=== PATIENT | female | born 1955 | race Caucasian/White ===

== ENCOUNTER 2022-07-23 08:21 | Outpatient (CLI) | payer MEDICARE, BC, SELFPAY ==
[2022-07-23 12:44] LABS: Albumin* 4.3 g/dL (3.3-5.0); Chloride* 107 mmol/L (96-114)
[2022-07-23 12:45] LABS: Potassium* 4.5 mmol/L (3.6-5.1); Sodium* 140 mmol/L (135-149)
[2022-07-23 12:47] LABS: Alkaline Phosphatase* 57 U/L (40-150); Aspartate Amino Transferase* 34 U/L (12-35); Bilirubin Total* 0.6 mg/dL (0.1-1.5); Blood Urea Nitrogen* 23 mg/dL (7-30); Carbon Dioxide* 25 mmol/L (20-32); Cholesterol* 167 mg/dL (90-199); Creatinine* 0.8 mg/dL (0.5-1.5); Estimated Glomerular Filt Rate 81 ml/min; Glucose* 99 mg/dL (60-115); Total Protein* 7.3 g/dL (6.0-8.3)
[2022-07-23 12:48] LABS: Alanine Aminotransferase* 33 U/L (4-35); Calcium* 9.6 mg/dL (8.4-10.6); HDL Cholesterol* 57 mg/dL (>=50); LDL Cholesterol Calculated 75 mg/dL (<100); Triglycerides* 174 mg/dL (40-149)
[2022-07-23 13:25] LABS: Vitamin D 25 Hydroxy* 38 ng/mL (30-80)
== END 2022-07-23 08:22 | disposition home or self-care (01) ==
PROVIDERS: PCP Family Medicine; Visit Provider Family Medicine
DX: E78.5 Hyperlipidemia, unspecified (principal); M17.12 Unilateral primary osteoarthritis, left knee; E66.01 Morbid (severe) obesity due to excess calories; I10 Essential (primary) hypertension; R53.83 Other fatigue
CPT/HCPCS: 80053; 80061; 82306; 82310; 83735; 83970; 84443

== ENCOUNTER 2022-08-06 14:40 | Outpatient (CLI) | payer MEDICARE, BC, SELFPAY ==
--- NOTE | 2022-08-06 15:00 | CRLHL7_ITS ---
For Patients: As a result of the Century Cures Act, medical imaging exams and procedure reports are released immediately into your electronic medical record. You may view this report before your referring provider. If you have questions, please contact your health care provider. DXA BONE MINERAL DENSITY STUDY Reason for exam: Screening. Current height (in): 64.0 Weight (lb): 165.0 Menopause age: 44 Ethnicity: White 1. Have you had a previous hip or vertebral fracture? No. 2. Have you had any fractures during your adult life which did not result from significant trauma (e.g., auto accident)? No. 3. Did either of your parents have a hip fracture? No. 4. Do you smoke? No. 5. Have you ever taken Glucocorticoids? No. 6. Do you have rheumatoid arthritis? No. 7. Do you have secondary osteoporosis? No. 8. Do you drink 3 or more alcoholic drinks per day? No. 9. Are you being treated for osteoporosis? No. 10. Have you ever taken any of the following medications: Actonel, Evista, Fosamax, Miacalcin, Reclast, Boniva, Forteo, HRT (i.e. estrogen/hormone therapy), Protelos, Prolia, Vitamin D, Calcium, other ??? please specify. ANSWER: Yes, Vitamin D, calcium. 11. Do you have any of the following medical conditions: Anorexia or bulimia, asthma or emphysema, end stage renal disease, hyperparathyroidism, any seizure disorders, cancer, inflammatory bowel diseases, hysterectomy, other ??? please specify. ANSWER: Yes, hysterectomy. 12. What was your maximum height (inches)? 55 13. Do you perform weight bearing exercise regularly? Yes. 14. Do you regularly consume dairy products? Yes. 15. Do you drink caffeinated beverages? Yes. 16. At what age did your period start? 13. 17. Are you premenopausal? No. 18. How many full term pregnancies have you had? 2 19. Have you ever missed your period for more than 6 months in a row (not including or menopause)? No. TECHNIQUE: Bone mineral density study was performed using the [employer]. FINDINGS: The results of the study expressed as bone mineral density (BMD) are as follows: Lumbar spine L1 to L3: BMD: 0.987 g/cm2. T-score: -0.3. Z-score: 1.6. Neck Left: BMD: 0.799 g/cm2. T-score: -0.4. Z-score: 1.2. Right: BMD: 0.704 g/cm2. T-score: -1.3. Z-score: 0.3. Total Left: BMD: 0.997 g/cm2. T-score: 0.5. Z-score: 1.8. Right: BMD: 0.939 g/cm2. T-score: -0.0. Z-score: 1.3. IMPRESSION: Osteopenia. *Comparison exams done prior to 11/2019 were performed on different unit, [facility]. FRAX 10-year Fracture Risk Major Osteoporotic Fracture: 8.9 percent Hip Fracture: 0.9 percent Reported Risk Factors: [place] () Neck BMD=0.704, BMI=28.3 Wellington Ruff M.D. Diagnostic/Nuclear Medicine Radiologist [email or web address] Transcribed: 10:11 a.m. PT/Dictated by: Wellington Ruff MD @ 08/07/2022 9:05:00 AM (Electronically Signed)
== END 2022-08-06 14:41 | disposition home or self-care (01) ==
LOC: RAD 14:41
PROVIDERS: PCP Family Medicine; Visit Provider Family Medicine
DX: Z13.820 Encounter for screening for osteoporosis (principal); M85.89 Other specified disorders of bone density and structure, multiple sites; Z78.0 Asymptomatic menopausal state
CPT/HCPCS: 77080

== ENCOUNTER 2023-03-16 08:28 | Day surgery (SDC) | payer MEDICARE, BC, SELFPAY ==
[2023-03-16] VITALS (22 sets, daily range): BP systolic 114–152; BP diastolic 57–87; PULSE 43–94; RESP 12–18; TEMP 34.7–36.8; O2SAT 90–98; BMI 24.0
[2023-03-16] MEDS: ACETAMINOPHEN 500 MG TABLET 1000 MG PO ×3 (08:34→19:47)
[2023-03-16] MEDS: OXYCODONE (CR) 10 MG TAB.ER.12H PO (08:34)
--- NOTE | 2023-03-16 09:08 | CRLHL7_ITS ---
For Patients: As a result of the Cures Act, medical imaging exams and procedure reports are released immediately into your electronic medical record. You may view this report before your referring provider. If you have questions, please contact your health care provider. Indication: Postop Technique: Two views left knee Findings/Impression: Hardware from a left total knee arthroplasty is in satisfactory position. Bone alignment is normal. No sign of acute fracture. Postop changes are within normal limits. Dictated by Patel Murguia MD @ 03/16/2023 9:50:32 AM (Electronically Signed)
[2023-03-16] MEDS: LACTATED RINGERS 1000 ML 1,000 ML 100 ML IV ×2 (09:45→11:17)
[2023-03-16] MEDS: SODIUM CHLORIDE 0.9 % (FLUSH) 10 ML SYRINGE IVF (09:45)
[2023-03-16] MEDS: MIDAZOLAM HCL 1 MG/ML inj IVP (09:57)
[2023-03-16] MEDS: fentaNYL 100 MCG/2 ML inj IVP (09:57)
--- NOTE | 2023-03-16 10:02 | SUR.PREOP ---
TIME?OUT:?0957 PT/RN/MDA?VERIFICATION?OF?SURGICAL?SITE,?PROCEDURE,?AND?CONSENT OBTAINED?PRIOR?TO?INVASIVE?PROCEDURE.
[2023-03-16] MEDS: CEFAZOLIN 2 GM in 0.9 % SODIUM CHLORIDE Mini-bag 100 ML IVPB ×3 (10:25→23:16)
[2023-03-16] MEDS: TRANEXAMIC ACID 100 MG/ML INJ 1000 MG IV (10:32)
--- NOTE | 2023-03-16 11:23 | P.NB_ITS ---
Nerve Block Nerve Block Time Seen by Provider: 09:59 Date Seen: 03/16/23 Type of block requested by surgeon for post-operative analgesia: geniculars Side: left Time out performed: Yes Verification of patient name: Yes Verification of date of : Yes Site marking: site marked Name of person performing procedure: Prashant Continuous monitoring Was continuous monitoring of O2 sat, B/P, ekg monitor tech, recorded every 15 minutes?: Yes Procedure Checklist: sterile prep, needles and gloves Medications given in 5ml increments after negative aspiration: Ropivicaine %: 0.5 mL: 9 Needle gauge: 25 Patient tolerated procedure well: Yes Block Charges Block Charge (with Pro Fee): Genicular Nerve Block Use of Ultrasound Machine for Block: No
--- NOTE | 2023-03-16 11:23 | W.PM.NB ---
Nerve Block Nerve Block Time Seen by Provider: 09:59 Date Seen: 03/16/23 Type of block requested by surgeon for post-operative analgesia: adductor canal Side: left Time out performed: Yes Verification of patient name: Yes Verification of date of : Yes Site marking: site marked Name of person performing procedure: Prashant Continuous monitoring Was continuous monitoring of O2 sat, B/P, cardiac monitor technician, recorded every 15 minutes?: Yes Procedure Checklist: sterile prep, needles and gloves Ultrasound guided. Images saved: Yes Medications given in 5ml increments after negative aspiration: Ropivicaine %: 0.5 mL: 20 Needle gauge: 20 Decadron (mg): 10 Precedex (mcg): 25 Patient tolerated procedure well: Yes Additional comments: Needle noted adjacent to nerve Block Charges Block Charge (with Pro Fee): Femoral Nerve Use of Ultrasound Machine for Block: Yes- US Guidance/pain block
--- NOTE | 2023-03-16 11:24 | W.ANESCHARGE ---
Anesthesia Charges Start Date/Time Anesthesia Start Date: 03/16/23 Anesthesia Start Time: 10:18 Stop Date/Time Anesthesia Stop Date: 03/16/23 Anesthesia Stop Time: 12:09
--- NOTE | 2023-03-16 11:26 | P.ORPRC_ITS ---
Procedure Note Date of procedure: 03/16/23 Procedure: PREOPERATIVE DIAGNOSIS: 1. Left knee osteoarthritis, primary, severe POSTOPERATIVE DIAGNOSIS: 1. Left knee osteoarthritis, primary, severe PROCEDURE: 1. Left total knee arthroplasty SURGEON: Colton Cain MD. FURNACE OPERATOR OIL OR GAS: CANDE F[place] - Of note, a skilled food and beverage assistant was critical for this case to aid in patient positioning, tissue retraction, limb manipulation/positioning, and closure. ANESTHESIA: Spinal anesthetic EBL: 50ml IMPLANTS: DePuy J&J all cemented TKA - Attune PS femur size 5 regular, size 4 tibia, 5 poly spacer, 38 mm patella TOURNIQUET: 75 min at 300 torr COMPLICATIONS: None evident INDICATIONS: The patient is a pleasant 68-year-old female who has experienced severe left knee pain and difficulty bearing weight. Workup included x-rays wh ich revealed severe osteoarthrosis in the knee. Given the deformity, the dysfunction, and the pain, as well as the failure of nonoperative management, recommendation was made for surgery. FINDINGS: Porous cancellous bone. Severe medial compartment chondromalacia and significant patellofemoral chondromalacia as well. To a lesser degree lateral compartment. Moderate effusion upon entering the joint. Degenerative meniscus pathology especially medial compartment. DESCRIPTION OF PROCEDURE: Following a thorough discussion of risks, benefits, and alternatives consent was obtained and the left knee was marked. The patient was brought to the operating room and placed supine on the operating table. Induction of anesthesia was undertaken. 1 g IV Ancef and 1 g tranexamic acid was administered within 1 hr of incision preoperatively. Proper time-out was performed identifying proper patient, site, procedure. The operative extremity was prepped and draped in the appropriate sterile fashion using ChloraPrep after the patient was positioned supine with all bony prominences well padded. A longitudinal, anterior, midline skin incision was made starting approximately 3cm proximal to the superior pole of the patella and advanced distal to the tibial tubercle. A median parapatellar arthrotomy was created. A medial subperiosteal sleeve was created with knife, bustos elevator and curved osteotome. The retropatellar fatpad was resected and the synovium in the suprapatellar pouch excised to visualize the anterior femoral cortex. Femoral preparation was performed via an intramedullary guide. Step drill allowed access into the femoral canal. The distal cutting guide was placed with 5? of valgus and 10 mm cut on the distal femur. Femur was sized using a anterior referencing guide in 3? of external rotation. This found have a best fit with the sizing noted above. The 4 in 1 cutting block was then placed, and the distal femur shaped accordingly. The box cut was then created and the trial implant inserted to confirm appropriate fit. We turned our attention to the proximal tibia. Extramedullary guide was utilized for cutting with the goal of being 90 degree cut from the mechanical axis of the tibia in the varus/valgus plane utilizing tibial crest as the primary alignment. Initially a 3 mm resection was performed from the medial tibial plateau. Ultimately, balancing was achieved in both flexion and extension in both varus and valgus. The knee was able to achieve full extension as well comfortably. The patella was initially measured and found have a thickness of 23 mm. It was resected back to approximately 13.5 mm. It was sized to be a best fit with as noted above. This was drilled, trial placed. All trials were placed and found to have an excellent stability and balance. At this stage, trial implants were removed, the knee was thoroughly irrigated with normal saline, and the cement was mixed. After irrigation, the knee was thoroughly dried, and cement placed, with the real tibial and femoral implants placed along with the patella. Trial poly spacer was placed and confirmed to have excellent range of motion and full extension, and the real poly spacer opened and inserted. All extra cement was removed, and a 3 min Betadine soak performed. Finally, a final irrigation round with normal saline was performed. Closure performed with 0 PDS and #0 Stratafix for the quad tendon/retinaculum. 2-0 Vicryl/Stratafix for the subcutaneous and 4-0 Monocryl for subcuticular closure. Dressings were applied and the patient was awoken from anesthesia a fter the tourniquet deflated and transferred the PACU in stable condition. A skilled food and beverage assistant was critical for this case to aid in patient positioning, tissue retraction, bone exposure, limb manipulation/positioning, patient safety, and closure. PLAN: 1. Weight bear as tolerated operative extremity. 2. 23 hr perioperative antibiotics. 3. Ice. 4. PT/OT consults for ambulation assistance/mobility education. 5. Social work consult for discharge planning. 6. DVT prophylaxis with at SCDs, Ethan Hose, and aspirin twice daily.
--- NOTE | 2023-03-16 11:32 | W.PM.H&PU ---
History & Physical Update History & Physical Update H&P Reviewed and patient assessed: No changes noted
--- NOTE | 2023-03-16 12:10 | W.ANESCHARGE ---
Anesthesia Charges Start Date/Time Anesthesia Start Date: 03/16/23 Anesthesia Start Time: 10:18 Stop Date/Time Anesthesia Stop Date: 03/16/23 Anesthesia Stop Time: 12:09
--- NOTE | 2023-03-16 12:15 | CRLHL7_ITS ---
For Patients: As a result of the Cures Act, medical imaging exams and procedure reports are released immediately into your electronic medical record. You may view this report before your referring provider. If you have questions, please contact your health care provider. Indication: Postop Technique: Two views left knee Findings/Impression: Hardware from a left total knee arthroplasty is in satisfactory position. Bone alignment is normal. No sign of acute fracture. Postop changes are within normal limits. Dictated by Patel Murguia MD @ 03/16/2023 12:37:25 PM (Electronically Signed)
[2023-03-16] MEDS: HYDROmorphone 0.5 mg/0.5 ml inj IVP ×2 (15:01→19:49)
--- NOTE | 2023-03-16 15:25 | PC.NURSE ---
SHIFT NOTE: PATIENT ARRIVED TO MED/SURG RECOVERY AT 1240 TODAY WITH ARRIVING AT BEDSIDE SHORTLY AFTERWARD. PATIENT ABLE TO WIGGLE TOES AFTER SURGERY AND CAPILLARY REFILL NOTED TO BE <3 SECONDS. CAMERON STOCKINGS AND PLEXI PULSES TO BILATERAL LOWER EXTREMITIES NOTED TO BE IN PLACE. LUNG SOUNDS CLEAR TO ALL LOBES BILATERALLY. BOWEL SOUNDS ACTIVE X 4 WITH LAST BM OF 03/16/23 PER PATIENT REPORT. PATIENT REPORTED PAIN TO LEFT KNEE/LEG 5/10 BEFORE WORKING WITH THERAPY THIS AFTERNOON AND WAS GIVEN 0.5 MG DILAUDID IVP AFTER RECEIVING SCHEDULED TYLENOL. DRESSING TO LEFT ANTERIOR KNEE SURGICAL INCISION NOTED TO BE CLEAN, DRY AND INTACT UPON INSPECTION. NO N/V NOTED THIS SHIFT. PATIENT DECLINED LUNCH WHEN OFFERED THOUGH DID ACCEPT SODA CRACKERS. PATIENT WORKING WITH PT AT THIS TIME. COUGHING, DEEP BREATHING AND USE OF INCENTIVE SPIROMETER ENCOURAGED AND COMPLETED. PATIENT NOTED TO BE ALERT & ORIENTED X 4 WITH CALL LIGHT WITHIN REACH.
--- NOTE | 2023-03-16 15:43 | P.IMCN_ITS ---
Date of Consult Patient: [facility] Patient Consult date: 03/16/23 Requesting Physician: Orthopedics Primary Care Provider: Cata Borja, DO Consult Narrative Reason for consult: Post-op care for hyperlipidemia, overactive bladder, insomnia Narrative: Vivienne Salmon is a 68 year old woman With longstanding left gonarthrosis presents today for an elective total knee arthroplasty. This is undertaken successfully with no apparent complications. Estimated blood loss 50 mL. She has already been up in transferred from bed to bedside recliner chair. Initiall y had some nausea without vomiting. When transferring she also had some lightheadedness. Pain well controlled at this time. Review of Systems Status of ROS: Reports: 10 or more systems reviewed and unremarkable except as noted in History and below Narrative: No angina, anginal equivalent, syncope, near syncope, cough, dyspnea, palpitations or chest fluttering, diaphoresis, dependent edema or claudication. Bowel and bladder function are adequate. Only uses oxybutynin when she is traveling - does get dry mouth when using oxybutynin, but it certainly helps with her overactive bladder symptoms. No recent fevers, rigors, infection. No recent travel or trauma. No focal motor neurologic deficits. HgA1C 5.7 on . Lat known tetanus was a Tdap on 03/12/2012. Full resuscitation in event of cardiopulmonary demise. Designates her as power of brass chaser for health should that be required. Tolerated a right total knee arthroplasty previously without any complications. Tells me she plans on dancing the 1st part of the year after her left knee recovers. 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 - Congenital absence, atresia and stenosis of other parts of large intestine (ICD-10) Surgical History (Updated 03/16/23 @ 15:48 by Nicolás Jaime MD) History of total right knee replacement (04/02/16) ?Z96.651 - Presence of right artificial knee joint (ICD-10) History of tonsillectomy ?Z90.89 - Acquired absence of other organs (ICD-10) History of hysterectomy with oophorectomy History of cholecystectomy ?Z90.49 - Acquired absence of other specified parts of digestive tract (ICD- 10) History of cataract removal with insertion of prosthetic lens ?Z98.49 - Cataract extraction status, unspecified eye (ICD-10) ?Z96.1 - Presence of intraocular lens (ICD-10) History of breast mammoplasty ?Z98.890 - Other specified postprocedural states (ICD-10) Family History Sister Colon cancer Thyroid disease Mother Dementia Social History Narrative: activity, swimming engages in gardening for recreation has 2 children non-smoker social alcohol use What is your current living situation?: I presently have a place to live Problems where you live: no known problems In the past 12 months, utilities in danger of being shut off: no In past 12 months, lack of transportation kept you from medical appts, meetings, work, or getting things needed for daily living: no In the past 12 mos, have been you worried that your food would run out before you had money to buy more?: never true In the past 12 mos, the food you bought just didn't last and you didn't have money to buy more?: never true Highest level of school completed/degree received: some college, no degree Smoking Status: Never smoker Do you use any of these nicotine containing products: None Second hand tobacco smoke exposure: No How often do you have a drink containing alcohol: monthly or less Alcohol type: hard liquor How many standard drinks containing alcohol do you have on a typical day: 1 or 2 How often do you have six or more drinks on one occasion: Never AUDIT-C Alcohol total score: 1 Non-prescribed substance use: denies use Caffeine: Yes How often does anyone, including family, friends and others, physically hurt you : never How often does anyone, including family, friends and others, insult or talk down to you: never How often does anyone, including family, friends and others, threaten you with harm: never How often does anyone, including family, friends and others, scream or curse at you: never Little interest or pleasure in doing things: not at all Feeling down, depressed, or hopeless: not at all service: No Meds Home Medications and Allergies Home Medications Medication Instructions Recorded Confirmed Type cholecalciferol (vitamin D3) 10 400 unit PO DAILY 07/23/22 03/16/23 History mcg (400 unit) tablet glucosamine-chondroitin 500 mg-400 1 cap PO DAILY 07/23/22 03/16/23 History mg capsule lutein extract 15 mg-zeaxanthin 1 cap PO DAILY 07/23/22 03/16/23 History extract 0.7 mg capsule loperamide 2 mg tablet 2 mg PO DAILY PRN 03/09/23 03/16/23 History atorvastatin 20 mg tablet 20 mg PO HS 03/16/23 03/16/23 History trazodone 50 mg tablet 150 mg PO HS PRN insomnia 03/16/23 03/16/23 History Allergies Allergy/AdvReac Type Severity Reaction Status Date / Time No Known Allergies Allergy Verified 03/16/23 08:38 Exam Narrative: Exam Narrative: I examine her in her hospital room. Appears tired but comfortable and in no acute distress. Vision and hearing are grossly normal. Alert and oriented to self, place, time, situation. Friendly, articulate, cooperative. No icterus or conjunctival injection. Pupils equally round and reactive to light and accommodation. Conjugate gaze. Extraocular muscles are intact. Dentition in good repair. Moist buccal mucosa. Neck is supple. Midline trachea. No JVD or hepatojugular reflux. No head and neck lymphadenopathy. Lungs are clear to auscultation bilaterally without wheezing, rhonchi, or rales. No CVA tenderness. Heart tones with regular rhythm, normal S1-S2, without murmur, gallop, or rub. PMI not laterally displaced. Abdomen with active bowel sounds, soft, nontender. No organomegaly or masses. No rebound or guarding. Moving all 4 extremities. Sitting upright without need for support. No tremor, asterixis, or ataxia. Const: Vital Signs, click to edit/add: Vital Signs - 24 hr 03/16/23 09:03 03/16/23 09:57 03/16/23 10:00 Temperature 97.6 F Pulse Rate 62 55 L 44 L Pulse Rate [Left P ulse Oximeter] Respiratory Rate 16 16 16 Blood Pressure 143/87 H 152/67 H 144/60 H Blood Pressure [Ri ght Arm] Pulse Oximetry 97 96 98 Oxygen Delivery Me thod Room Air Nasal Cannula Nasal Cannula Oxygen Flow Rate 2 4 03/16/23 10:05 03/16/23 12:04 03/16/23 12:09 Temperature 98.1 F Pulse Rate 43 L 64 63 Pulse Rate [Left P ulse Oximeter] Respiratory Rate 16 16 16 Blood Pressure 114/57 L 114/58 L 117/62 Blood Pressure [Ri ght Arm] Pulse Oximetry 97 94 93 Oxygen Delivery Me thod Nasal Cannula Room Air Room Air Oxygen Flow Rate 4 03/16/23 12:15 03/16/23 12:20 03/16/23 12:25 Temperature Pulse Rate 65 63 60 Pulse Rate [Left P ulse Oximeter] Respiratory Rate 14 14 16 Blood Pressure 124/64 134/67 147/68 H Blood Pressure [Ri ght Arm] Pulse Oximetry 92 96 96 Oxygen Delivery Me thod Room Air Nasal Cannula Nasal Cannula Oxygen Flow Rate 4 4 03/16/23 12:30 03/16/23 12:40 03/16/23 12:55 Temperature 94.5 F L 94.5 F L Pulse Rate 61 57 L Pulse Rate [Left P ulse Oximeter] 56 L Respiratory Rate 14 12 14 Blood Pressure 137/72 Blood Pressure [Ri ght Arm] 138/78 140/68 H Pulse Oximetry 96 95 Oxygen Delivery Me thod Nasal Cannula Room Air Room Air Oxygen Flow Rate 4 03/16/23 13:10 03/16/23 13:10 03/16/23 13:26 Temperature 95.6 F L 95.6 F L 95.6 F L Pulse Rate Pulse Rate [Left P ulse Oximeter] 56 L 56 L 56 L Respiratory Rate 12 12 12 Blood Pressure Blood Pressure [Ri ght Arm] 133/65 133/65 134/73 Pulse Oximetry 91 91 90 Oxygen Delivery Me thod Room Air Room Air Room Air Oxygen Flow Rate 03/16/23 13:40 03/16/23 14:10 10/09/23 14:40 Temperature 95.6 F L 95.0 F L 95.7 F L Pulse Rate Pulse Rate [Left P ulse Oximeter] 68 58 L 70 Respiratory Rate 16 12 14 Blood Pressure Blood Pressure [Ri ght Arm] 132/70 136/77 152/72 H Pulse Oximetry 96 91 94 Oxygen Delivery Me thod Room Air Room Air Room Air Oxygen Flow Rate Documenting provider has reviewed patient's vital signs: yes Assessment and Plan Assessment and plan (1) Osteoarthritis of left knee: Problem comment: Severe Status: Acute (2) Status post total knee replacement, left: Problem comment: - 03/16/2023: Dr. Colton Cain, [facility] Status: Acute Assessment and Plan: Postoperative day 0. (3) Hyperlipidemia: Problem comment: - Atorvastatin 20 mg po HS Status: Acute (4) Overactive bladder: Problem comment: - oxybutynin mg po BID PRN Status: Acute (5) Insomnia, unspecified: Problem comment: - Initiation and maintenance phases of sleep - Trazodone 150 mg po HS Status: Acute (6) Immunization due: Problem comment: - Last tetanus was Tdap on 03/12/2012 Status: Acute Plan 1. Reviewed impression with patient and her . 2. Answered their questions to their satisfaction. 3. Continue with supportive medications. 4. Completed hospitalists portion of discharge orders. 5. Agree with perioperative antibiotic prophylaxis. 6. Agree with postoperative venous thromboembolism prophylaxis as instituted. 7. Update tetanus immunization. 8. Hospitalists available to assist if needed hereafter.
[2023-03-16] MEDS: ONDANSETRON 2 MG/ML inj 4 MG IVP (16:20)
[2023-03-16] MEDS: LACTATED RINGERS 1000 ML 1,000 ML 75 ML IV (18:05)
--- NOTE | 2023-03-16 19:41 | PC.NURSE ---
Pt pleasant and cooperative. 2nd joint. Cryocuff to left knee. Is up with assist of 1, gait belt, and walker. Voided in toilet. pain 4-810, see MAR for medication administration with relief. Pt will return home with .
[2023-03-16] MEDS: ATORVASTATIN 10 MG TABLET 20 MG PO (21:30)
[2023-03-16] MEDS: ASPIRIN 81 MG TABLET EC PO (21:30)
[2023-03-16] MEDS: SENNOSIDES 1 TAB TABLET 2 TAB PO (21:31)
[2023-03-16] MEDS: OXYCODONE 5 MG TABLET PO (21:33)
[2023-03-17] MEDS: OXYCODONE 5 MG TABLET PO ×4 (00:10→10:35)
[2023-03-17] MEDS: ACETAMINOPHEN 500 MG TABLET 1000 MG PO ×2 (02:09→08:54)
[2023-03-17 02:23] VITALS: BP 154/75; PULSE 95; RESP 18; TEMP 36.7; O2SAT 95
[2023-03-17] MEDS: CEFAZOLIN 2 GM in 0.9 % SODIUM CHLORIDE Mini-bag 100 ML IVPB (06:11)
--- NOTE | 2023-03-17 07:09 | PC.NURSE ---
Patient pleasant and cooperative. Calls appropriately. Ax1 with GB and walker to bathroom, was slow but tolerated well. Rated pain 5-8/10, was given PRN pain medications and ice packs (see eMar). VSS. Dressing CD&I. Teds and Cryocuff on. Saline locked. Tolerating regular diet. ?
[2023-03-17 07:16] LABS: Basophils Percent Auto 0.1 % (0.0-3.0); Hematocrit 33.2 % (33.0-51.0); Hemoglobin* 10.9 gm/dL (12.0-16.0); Immature Granulocytes Pct Auto 0.2 %; Lymphocytes Percent Auto 7.3 % (20-44); Mean Corpuscular HGB Conc 33 gm/dL (32-36); Mean Corpuscular Hemoglobin 31 pg (26-34); Mean Corpuscular Volume 94 fL (80-100); Monocytes Percent Auto 6.9 % (0.0-11.0); Neutrophils Percent Auto 85.5 % (42.0-72.0); Platelet Count* 219 K/uL (140-440); RDW Coefficient of Variation % 12.7 % (11.5-15.5); Red Blood Count 3.54 m/uL (4.00-5.20); White Blood Count* 12.51 K/uL (4.50-11.00)
[2023-03-17 07:21] LABS: Slide Review Reflex No
[2023-03-17 07:32] LABS: Potassium* 4.2 mmol/L (3.6-5.1); Sodium* 134 mmol/L (135-149)
[2023-03-17 07:35] LABS: Blood Urea Nitrogen* 15 mg/dL (7-30); Creatinine* 0.6 mg/dL (0.5-1.5); Est. Creatinine Clearance* 54.32; Estimated Glomerular Filt Rate 98 ml/min
[2023-03-17 07:57] VITALS: BP 129/68; PULSE 85; RESP 16; TEMP 36.9; O2SAT 97
--- NOTE | 2023-03-17 08:37 | P.ORPN_ITS ---
Subjective Subjective Date Seen: 03/17/23 Principal diagnosis: Status postop day 1 left total knee arthroplasty Interval history: Patient reports doing well. No acute events over night. Was experiencing some lightheadedness yesterday with associated nausea, since improved with no similar symptoms today. Pain managed with scheduled and PRN medications, ice. DVT prophylaxis: 81 mg aspirin by mouth twice daily, bilateral knee high Ethan stockings, SCDs, walking. Denies fevers, chills, aches, N/V, CP, SOB/MALLOY, or lightheadedness. Ortho Exam Narrative Exam Narrative: -Patient appears comfortable; no apparent acute distress -Alert and oriented times 3 -Operative knee mildly swollen; soft tissues supple; no ecchymosis; no erythematous streaking Warmth appropriate -Surgical dressing clean, dry, intact; no drainage -Bilateral calfs soft; no significant swelling, edema, tenderness, erythema, discoloration, warmth, or palpable cords -2+ DP/PT pulses, intact dermatomes and myotomes distally (5/5 strength) Const Vital Signs, click to edit/add: Vital Signs - 24 hr 03/16/23 09:03 03/16/23 09:57 03/16/23 10:00 Temperature 97.6 F Pulse Rate 62 55 L 44 L Pulse Rate [Left Pulse Oximeter] Respiratory Rate 16 16 16 Blood Pressure 143/87 H 152/67 H 144/60 H Blood Pressure [Right Arm] Pulse Oximetry 97 96 98 Oxygen Delivery Method Room Air Nasal Cannula Nasal Cannula Oxygen Flow Rate 2 4 03/16/23 10:05 03/16/23 12:04 03/16/23 12:09 Temperature 98.1 F Pulse Rate 43 L 64 63 Pulse Rate [Left Pulse Oximeter] Respiratory Rate 16 16 16 Blood Pressure 114/57 L 114/58 L 117/62 Blood Pressure [Right Arm] Pulse Oximetry 97 94 93 Oxygen Delivery Method Nasal Cannula Room Air Room Air Oxygen Flow Rate 4 03/16/23 12:15 03/16/23 12:20 03/16/23 12:25 Temperature Pulse Rate 65 63 60 Pulse Rate [Left Pulse Oximeter] Respiratory Rate 14 14 16 Blood Pressure 124/64 134/67 147/68 H Blood Pressure [Right Arm] Pulse Oximetry 92 96 96 Oxygen Delivery Method Room Air Nasal Cannula Nasal Cannula Oxygen Flow Rate 4 4 03/16/23 12:30 03/16/23 12:40 03/16/23 12:55 Temperature 94.5 F L 94.5 F L Pulse Rate 61 57 L Pulse Rate [Left Pulse Oximeter] 56 L Respiratory Rate 14 12 14 Blood Pressure 137/72 Blood Pressure [Right Arm] 138/78 140/68 H Pulse Oximetry 96 95 Oxygen Delivery Method Nasal Cannula Room Air Room Air Oxygen Flow Rate 4 03/16/23 13:10 03/16/23 13:10 03/16/23 13:26 Temperature 95.6 F L 95.6 F L 95.6 F L Pulse Rate Pulse Rate [Left Pulse Oximeter] 56 L 56 L 56 L Respiratory Rate 12 12 12 Blood Pressure Blood Pressure [Right Arm] 133/65 133/65 134/73 Pulse Oximetry 91 91 90 Oxygen Delivery Method Room Air Room Air Room Air Oxygen Flow Rate 03/16/23 13:40 03/16/23 14:10 03/16/23 14:40 Temperature 95.6 F L 95.0 F L 95.7 F L Pulse Rate Pulse Rate [Left Pulse Oximeter] 68 58 L 70 Respiratory Rate 16 12 14 Blood Pressure Blood Pressure [Right Arm] 132/70 136/77 152/72 H Pulse Oximetry 96 91 94 Oxygen Delivery Method Room Air Room Air Room Air Oxygen Flow Rate 03/16/23 15:00 03/16/23 15:50 03/16/23 17:40 Temperature 97.5 F L 97.8 F Pulse Rate Pulse Rate [Left Pulse Oximeter] 72 75 Respiratory Rate 16 18 Blood Pressure Blood Pressure [Right Arm] 149/83 H 143/72 H Pulse Oximetry 96 96 96 Oxygen Delivery Method Room Air Room Air Oxygen Flow Rate 03/16/23 19:00 03/16/23 23:00 03/16/23 23:00 Temperature 97.3 F L 98.2 F Pulse Rate Pulse Rate [Left Pulse Oximeter] 78 94 94 Respiratory Rate 16 16 16 Blood Pressure Blood Pressure [Right Arm] 138/73 138/72 Pulse Oximetry 94 94 Oxygen Delivery Method Room Air Room Air Oxygen Flow Rate 03/16/23 23:00 03/17/23 02:23 03/17/23 07:57 Temperature 98.1 F Pulse Rate Pulse Rate [Left Pulse Oximeter] 95 Respiratory Rate 18 Blood Pressure Blood Pressure [Right Arm] 154/75 H Pulse Oximetry 94 95 97 Oxygen Delivery Method Room Air Oxygen Flow Rate Assessment and Plan Assessment and plan (1) Osteoarthritis of left knee: Problem details: Severe Status: Acute (2) Status post total knee replacement, left: Problem details: - 03/16/2023: Dr. Colton Cain, [facility] Status: Acute (3) Hyperlipidemia: Problem details: - Atorvastatin 20 mg po HS Status: Acute (4) Overactive bladder: Problem details: - oxybutynin mg po BID PRN Status: Acute (5) Insomnia, unspecified: Problem details: - Initiation and maintenance phases of sleep - Trazodone 150 mg po HS Status: Acute (6) Immunization due: Problem details: - Last tetanus was Tdap on 03/12/2012 Status: Acute Plan - Complete 23 hour perioperative antibiotics. - PT/OT consult for education and assistance. - Social work consult for discharge planning - Prescribed analgesics as needed - DVT prophylaxis: 81 mg aspirin by mouth twice daily, bilateral knee high Ethan Hose stockings and SCDs - Anticipation is for discharge to home with today, 03/17/2023 if the patient remains medically stable, pain is controlled, and they are safe with mobilization.
[2023-03-17] MEDS: ASPIRIN 81 MG TABLET EC PO (08:54)
[2023-03-17] MEDS: SENNOSIDES 1 TAB TABLET 2 TAB PO (08:54)
== END 2023-03-17 11:03 | disposition home or self-care (01) ==
LOC: OR 08:29 → MEDSURG 08:33
PROVIDERS: PCP Family Medicine; Visit Provider Orthopaedic Surgery Sports Medicine
PROC: (CPT 27447; principal; 2023-03-16 10:15)
DX: M17.12 Unilateral primary osteoarthritis, left knee (principal); G89.18 Other acute postprocedural pain; R42 Dizziness and giddiness; N32.81 Overactive bladder; E78.5 Hyperlipidemia, unspecified; G47.00 Insomnia, unspecified; Z96.651 Presence of right artificial knee joint
CPT/HCPCS: 27447; 01402; 36415; 64447; 64454; 73560; 76942; 82565; 84132; 84295; 84520; 85025; 97110; 97116; 97161; 97165; 97535; A9270; C1776; J0690; J1100; J1170; J2250; J2405; J2704; J2795; J3010; J7120

== ENCOUNTER 2023-05-14 08:00 | Outpatient (RCR) | payer MEDICARE, BC, SELFPAY | END 2023-07-01 07:42 | disposition home or self-care (01) | PROVIDERS: PCP Family Medicine; Visit Provider Orthopaedic Surgery Sports Medicine | DX: M17.12 Unilateral primary osteoarthritis, left knee (principal); Z51.89 Encounter for other specified aftercare | CPT/HCPCS: 87086; 97032; 97110; 97112; 97140; 97161; 97164 ==

== ENCOUNTER 2023-07-21 07:34 | Outpatient (CLI) | payer MEDICARE, BC, SELFPAY | END 2023-07-21 07:35 | disposition home or self-care (01) | LOC: NFLDREF 16:02 | PROVIDERS: PCP Family Medicine; Referring Provider Family Medicine; Visit Provider Family Medicine | DX: D64.9 Anemia, unspecified (principal); E78.5 Hyperlipidemia, unspecified; E78.00 Pure hypercholesterolemia, unspecified | CPT/HCPCS: 80053; 80061 ==

== ENCOUNTER 2023-11-16 13:59 | Outpatient (CLI) | payer MEDICARE, BC, SELFPAY ==
--- NOTE | 2023-11-16 13:40 | CRLHL7_ITS ---
For Patients: As a result of the Century Cures Act, medical imaging exams and procedure reports are released immediately into your electronic medical record. You may view this report before your referring provider. If you have questions, please contact your health care provider. BILATERAL SCREENING MAMMOGRAM WITH COMPUTER-AIDED DETECTION AND TOMOSYNTHESIS TECHNIQUE: CC and MLO views were obtained. These mammographic images have been obtained using full-field digital technique. These mammographic images were interpreted with the benefit of computer-aided detection. Breast Tomosynthesis was used in this interpretation. COMPARISON FILM: 10/16/22, 05/25/18, 02/26/16. FINDINGS: There are scattered areas of fibroglandular density IMPRESSION: There is no radiographic evidence for malignancy. ASSESSMENT: BI-RADS Category 2: Benign RECOMMENDATION: Routine screening mammogram in 1 year. A lay language report of this examination will be provided to the patient. Patel Murguia M.D. Diagnostic Radiologist [email or web address] LUCÍA/Dictated by: Patel Murguia MD @ 11/17/2023 9:10:00 AM (Electronically Signed)
--- OUTSIDE RECORDS SUMMARY | 2023-11-16 14:02 | XMS_ITS | Clinical Summary ---
Author Organization [facility] Address [address] [place] [address] Care Team Providers Care Sole Leveler Name Role Phone Unassigned, Provider Primary Care Provider Unava ilable Source Comments You are receiving this document as you are listed as the primary care provider,follow-up provider, or the patient has been referred to you for consultation.This is in compliance with the Medicare and[facility] EHR Incentive Program,which states Providers who transition their patient to another setting of careor provider of care or refers their patient to another provider of care shouldprovide summary care record for each transition of care or referral. [facility] Allerg[facility] No known active allergies Medications Medication Sig Dispensed Refills Start Date End Date Status simvastatin (ZOCOR) 5 MG tablet Take 5 mg by mouth daily at bedtime. Active oxybutynin (DITROPANXL) 5 MG 24 hour release tablet Take 5 mg by mouth daily. 3 09/11/2018 Active atorvastatin (LIPITOR) 20 MG tablet Take 20 mg by mouth daily at bedtime. at bedtime 3 04/22/2019 Active estradiol (ESTRACE) 0.1 MG/GM vaginal cream 0.5 GRAMS PER VAGINA TWICE WEEKLY, USE NIGHTLY FOR TWO WEEKS, THEN TWICE WEEKLY. 0 04/07/2019 Active Active Problems No known active problems Social History Tobacco Use Types Packs/Day Years Used Date Smoking Tobacco: Never Smokeless Tobacco: Never Alcohol Use Standard Drinks/Week Comments Yes 2 (1 standard drink = 0.6 oz pur e alcohol) Sex and Gender Information Value Date Recorded Sex Assigned at Not on file Gender Identity Not on file Sexual Orientation Not on file Last Filed Vital Signs Vital Sign Reading Time Taken Comments Blood Pressure 145/82 07/13/2018 10:58 AM [employer] Pulse 61 01/10/2019 11:18 AM CDT Temperature - - Respiratory Rate - - Oxygen Saturation - - Inhaled Oxygen Concentration - - Weight - - Height - - Body Mass Index - - Plan of Treatment Health Maintenance Due Date Last Done Comments Hep C Screening (Preventive Services) 1955 Adult Preventive Visit 1973 Cholesterol 2000 Zoster/Shingles (1 of 2) 2005 Colon Cancer Screening Plan Due 07/16/2005 07/15/2005 Mammogram 03/12/2013 03/12/2012 Pneumococcal 65+ Yrs (1 - PCV) 2020 DTaP/Tdap/Td (2 - Tdap) 03/12/2022 03/12/20 12, 04/08/2007, 03/03/2001 COVID-19 Vaccine (3 - season) 2023 08/27/2020, 08/01/2020 Influenza (Season Ended) 2024 020, 03/15/2019, 04/19/2018, Additional history exists HepA Aged Out No longer eligi ble based on patient's age to complete this topic HepB Aged Out No longer eligi ble based on patient's age to complete this topic Hib Aged Out No longer eligi ble based on patient's age to complete this topic IPV (Polio) Aged Out No longer eligi ble based on patient's age to complete this topic MCV4 Aged Out No longer eligi ble based on patient's age to complete this topic Care Teams Sole Leveler Relationship Specialty Start Date End Date Unassigned, Provider [address] [place] [address] PCP - General 03/11/00
--- OUTSIDE RECORDS SUMMARY | 2023-11-16 14:02 | XMS_ITS | Clinical Summary ---
Author Organization [employer] [facility] [employer] Address [place], [place] [address] Care Team Providers Care Prison Officer Name Role Phone [facility] Primary Care Provider Unavailabl e Allergies No known active allergies Medications Medication Sig Dispensed Refills Start Date End Date Status vitamin B complex (B-COMPLEX VITAMIN) tablet Take 1 tablet by mouth once daily. 0 09/27/2014 Active ascorbic acid (VITAMIN C) 1,000 mg tablet Take by mouth once daily. 0 09/27/2014 Active cholecalciferol (VITAMIN D) 1,000 unit capsule Take 1 capsule by mouth once daily. 0 09/27/2014 Active vitamin e 400 unit capsule Take 1 capsule by mouth once daily. 0 09/27/2014 Active Iron 18 mg tablet Take by mouth. 0 09/27/2014 Act mynor glucosamine-chondroit in, 500-400 mg, (COSAMIN DS 500/400) 500-400 mg cap Take 1 capsule by mouth 3 times daily. 0 09/27/2014 Active omega-3 fatty acids-vitamin E (FISH OIL) 1,000 mg cap Take by mouth. 0 09/27/2014 Act mynor flaxseed oil-omega 3,6,9 1,300 mg-845 mg -117 mg-117 mg cap Take 1,300 mg by mouth 2 times daily. 0 09/27/2014 Active diphenoxylate-atropin e, 2.5-0.025 mg, (LOMOTIL) 2.5-0.025 mg tabletIndications:IBS (irritable bowel syndrome) TAKE 1 TABLET BY MOUTH EVERY DAY NEEDED 60 tablet 3 12/12/2014 Active prochlorperazine (COMPAZINE) 10 mg tabletIndications:Sharif sea Take 1 tablet by mouth every 6 hours if needed. if needed for nausea/vomiting 60 tablet 0 06/11/2015 Active albuterol HFA (PRO-AIR,VENTOLIN,PRO VENTIL) 90 mcg/actuation inhalerIndications:Co ugh Inhale 2 Puffs by mouth every 4 hours if needed. 1 Inhaler 2 06/25/2015 Active azithromycin (ZITHROMAX) 250 mg tabletIndications:Cou gh Take 500 mg (2 tabs) by mouth on day 1, then 250 mg (1 tab) daily for days 2-5. 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 Last breast exam-03/16 Last mammogram-09/20 Last lipid-03/16, LDL-127 Last colonoscopy-07/14 IBS (irritable bowel syndrome) 11/01/2009 Immunizations Name Administration Dates Next Due Influenza, IIV3 (Age >=3 years) 03/01/2013,03/12,03/25/2011,2010 Td (Age >=7 Years) 2007 Tdap 03/12/2012 Family History Medical History Relation Name Comments Hypertension Mother Relation Name Status Comments Mother Social History Tobacco Use Types Packs/Day Years Used Date Smoking Tobacco: Never Smokeless Tobacco: Never Alcohol Use Standard Drinks/Week Comments Yes 0 (1 standard drink = 0.6 oz pur e alcohol) 1-2 drinks per week Sex and Gender Information Value Date Recorded Sex Assigned at Not on file Gender Identity Not on file Sexual Orientation Not on file Obstetrics History Last Filed Vital Signs Vital Sign Reading Time Taken Comments Blood Pressure 124/75 10/08/2015 8:11 AM CDT Pulse 65 10/08/2015 8:11 AM CDT Temperature 37.1 ??C (98.8 ??F) 10/08/2015 8:11 AM CD T Respiratory Rate 12 03/04/2015 11:2 6 AM CDT Oxygen Saturation 96% 10/08/2015 8:11 AM CDT Inhaled Oxygen Concentration - - Weight 72.5 kg (159 lb 12.8 oz) 10/08/2015 8:11 AM CDT Height 161.9 cm (5' 3.75) 06/25/2015 1 0:37 AM [employer] Body Mass Index 27.65 06/25/2015 10:37 AM [employer] Plan of Treatment Health Maintenance Due Date Last Done Comments Zoster (shingles) series for age 50+ (1 of 2) 2005 Colonoscopy through age 75 07/15/2015 07/15/2005 Mammogram for age 45-75 09/20/2015 09/20/19 15, 03/12/2012, 03/04/2011, Additional history exists BMI (ht and wt on same day) for age 18+ 06/25/2016 06/25/2015 Depression screening for age 12+ 06/25/2016 06/25/19 16 Lipids for age 45-75 12/05/2019 12/04/2014, 09/27/2014, 03/01/2013, Additional history exists DEXA/DXA scan for age 65+ 2020 Pneumococcal series for age 65+ (1 of 1 - PCV) 2020 Tetanus booster 03/12/2022 03/12/2012, 2007 COVID-19 vaccine series ( - 2022- season) 2023 Influenza for age 65+ 02/07/2024 03/01/2013 , 03/12/2012, 03/25/2011, Additional history exists Tdap Completed 03/12/2012 Hepatitis C screening for ag e 18-79 Completed 09/27/2014 Procedures Procedure Name Priority Date/Time Associated Diagnosis Comments LIPID PANEL W REFLEX MEASURED LDL Routine 12/04/2014 8:19 AM CDT hyperlipidemia ANTI HCV Routine 09/27/2014 8:37 AM CDT Need for hepatitis C screening test SCAN-MAMMOGRAPHY REPORT 09/19/2014 12:00 PM CDT from Last 3 Months or Most Recently Relevant to Health Maintenance Results * (ABNORMAL) LIPID PANEL W REFLEX MEASURED LDL (12/04/2014 8:19 AM CDT) CHOLESTEROL,TOTAL 200(H) 100 - 199 mg/dL 12/04/2014 3:59 PM CDT [facility] TRIGLYCERIDES 175(H) <150 mg/dL 12/04/2014 3:59 PM CDT [facility] HDL CHOLESTEROL 44 >40 mg/dL 5 3:59 PM CDT [facility] NON-HDL CHOLESTEROL 156(H) <145 mg/dl 12/04/2014 3:59 PM CDT [facility] CHOL/HDL RATIO 4.55(H) <4.50 12/04/2014 3:59 PM CDT [facility] LDL CHOLESTEROL 121 <=130 mg/dL 12/04/2014 3:59 PM CDT [facility] PATIENT STATUS FASTING 12/04/2014 3:59 PM CDT [facility] Blood specimen (specimen) BLOOD SPECIMEN / Unknown Venipuncture / Unknown 12/04/2014 8:19 AM CDT 12/04/2014 8:20 AM CDT Marie Rivera MD CHEMISTRY [facility] [address] [place] [address], * ANTI HCV [[id number]] (09/27/2014 8:37 AM CDT) HEPATITIS C ANTIBODY Non-Reacti ve Non-Reacti ve 09/27/2014 5:37 PM CDT [facility] Blood specimen (specimen) BLOOD SPECIMEN / Unknown Venipuncture / Unknown 09/27/2014 8:37 AM CDT 09/27/2014 8:37 AM CDT Narrative [facility] - 09/27/2014 5:37 PM CDT Antibodies to HCV not detected; does not exclude the possibility of exposure to HCV. Marie Rivera MD SEND OUTS [facility] [address] [place] [address], [place] * SCAN-MAMMOGRAPHY REPORT (09/19/2014 12:00 PM CDT) Anatomical Region Laterality Modality Other Narrative 09/21/2014 11:36 AM CDT Procedure Note Scanner - 09/19/2014 12:00 PM CDT Scanner OTHER from Last 3 Months or Most Recently Relevant to Health Maintenance Care Teams Prison Officer Relationship Specialty Start Date End Date [place] PCP - General 06/07/15
== END 2023-11-16 14:00 | disposition home or self-care (01) ==
LOC: MAMMO 14:00
PROVIDERS: PCP Physician Assistant Medical; Visit Provider Physician Assistant Medical
DX: Z12.31 Encounter for screening mammogram for malignant neoplasm of breast (principal)
CPT/HCPCS: 77063; 77067

== ENCOUNTER 2024-05-18 07:51 | Outpatient (CLI) | payer MEDICARE, BC, SELFPAY ==
--- NOTE | 2024-05-18 08:15 | CRLHL7_ITS ---
For Patients: As a result of the Century Cures Act, medical imaging exams and procedure reports are released immediately into your electronic medical record. You may view this report before your referring provider. If you have questions, please contact your health care provider. INDICATION: Bilateral hearing loss. TECHNIQUE: Multiplanar multisequence MR imaging of the brain and internal auditory canals prior to and following intravenous contrast. COMPARISON: None. FINDINGS: Mild diffuse cerebral volume loss. No mass effect or midline shift. Few punctate FLAIR hyperintensities in the supratentorial white matter, typical for minimal chronic microvascular ischemic changes. No intracranial hemorrhage or pathologic extra-axial fluid collection. No diffusion restriction to suggest acute infarction. No pathologic intracranial enhancement. No mass or pathologic enhancement within the internal auditory canals or cerebellopontine angles. No concerning signal abnormalities in the inner ear structures. The major arterial flow voids at the skull base are preserved. Thinning of the ocular lenses. Paranasal sinuses are well aerated. Small left mastoid effusion. IMPRESSION: 1. No acute intracranial abnormality. 2. No mass or pathologic enhancement within the internal auditory canals or cerebellopontine angles. 3. Mild diffuse cerebral volume loss and minimal chronic microvascular ischemic changes. 4. Small left mastoid effusion. Dictated by Mike De León MD @ 05/18/2024 6:25:26 PM (Electronically Signed)
== END 2024-05-18 07:52 | disposition home or self-care (01) ==
LOC: MRI 07:52
PROVIDERS: PCP Physician Assistant Medical; Visit Provider Otolaryngology
DX: H91.8X3 Other specified hearing loss, bilateral (principal); I67.82 Cerebral ischemia; H74.8X1 Other specified disorders of right middle ear and mastoid
CPT/HCPCS: 70553; A9575

== ENCOUNTER 2024-05-30 09:30 | Outpatient (RCR) | payer MEDICARE, BC, SELFPAY ==
--- NOTE | 2024-05-10 11:09 | OT.OPOE ---
OT Outpatient Ortho Eval OT Outpatient Ortho Eval* Start: 05/10/24 09:59 Freq: Status: Active Protocol: Document 05/10/24 09:59 RACHEAL (Rec: 05/10/24 11:08 RACHEAL [id number]) E-signed By Viktoriya Posadas, OTR/L, CLT OT OP Ortho Eval Details Complexity Complexity Low Insurance Information Insurance Information Blue Cross/Blue Shield, Medicare B Outpatient History/Precautions Current Condition/Medical Diagnosis Referring Provider Dr. Colton Cain Medical Diagnoses S63.92XA - Sprain of unspecified part of left wrist and hand, initial encounter S66.912A - Strain of unspecified muscle, fascia and tendon at wrist and hand level, left hand, initial encounter M19.042 - Primary osteoarthritis, left hand Treatment Diagnosis Pain in the L hand, M79.642 Pain in the L wrist, M25.532 L Hand/Finger Stiffness, M25. 642 Date of Onset 03/02/24 Other Conditions Right rotator cuff tendinitis (Acute) M75.81 - Other shoulder lesions, right shoulder (ICD- 10) Osteoarthritis of finger of left hand (Acute) numerous fingers, numerous joints M19.042 - Primary osteoarthritis, left hand (ICD -10) Strain of left hand (Acute) S66.912A - Strain of unspecified muscle, fascia and tendon at wrist and hand level, left hand, initial encounter (ICD-10) Sprain of left hand (Acute) S63.92XA - Sprain of unspecified part of left wrist and hand, initial encounter ( ICD-10) Contusion of hand, left (Acute ) S60.222A - Contusion of left hand, initial encounter (ICD- 10) Shoulder pain, right (Acute) M25.511 - Pain in right shoulder (ICD-10) Hyperlipidemia (Acute) E78.5 - Hyperlipidemia, unspecified (ICD-10) Overactive bladder (Acute) N32.81 - Overactive bladder ( ICD-10) Insomnia, unspecified (Acute) - Initiation and maintenance phases of sleep - Trazodone 150 mg po HS G47.00 - Insomnia, unspecified (ICD-10) Osteopenia (Acute) 08/28 -1.3 M85.80 - Other specified disorders of bone density and structure, unspecified site ( ICD-10) Ingrown toenail of left foot ( Acute) L60.0 - Ingrowing nail (ICD-10 ) Neck pain (Acute) Improved with prison M54.2 - Cervicalgia (ICD-10) Family history of colon cancer (Acute) Z80.0 - Family history of malignant neoplasm of digestive organs (ICD-10) Medications: atorvastatin 20 mg PO DAILY B-complex with vitamin C 1 cap PO QDAY celecoxib 200 mg PO QDAY cholecalciferol (vitamin D3) 400 units PO DAILY [Ferrous PO] [Flaxseed PO] glucosamine-chondroitin 500- 400 mg 1 cap PO DAILY loperamide 2 mg PO DAILY PRN lutein-zeaxanthin extract 15-0 .7 mg 1 cap PO DAILY oxybutynin chloride 5 mg PO QDAY PRN prednisone 20 mg (2 x 10 mg) PO BID 7 days trazodone 150 mg PO QHS Medical/Functional History Medical History Reviewed Yes Prior Level of Function/Mobility Retired/active, lives with spouse. Indep with ADLs/IADLs and still driving Social History Employment Status Retired Current Occupation Patient worked at the [employer] 20 years and [employer] for 16 years Hobbies Engages in gardening for recreation Fitness Swimming at [employer] or [employer] Subjective Subjective Subjective 69 year old female was seen by Ortho provider on 04/28/24 with chief complaints of left hand and right arm pain. She states she fell about 2 months ago and injured her left hand and right shoulder after a fall while hiking in [place]. Regarding the left hand, her pain is worse with gripping, squeezing, lifting a full cup of water. When she initially injured her hand the small finger was purple. Her pain is worst in the small and ring fingers. The pain has improved some, but has not resolved. Her pain is moderate, intermittent and relieves with rest. She also feels weak. Regarding the right shoulder, she jammed her shoulder as well when she fell. She has been able to continue to swim but for a shorter time. Her pain is improving with time ( injury was in Feb) with L hand activity rated at 1-4/10 and no pain at rest. Her pain is moderate, intermittent and relieves with rest. Patient is highly motivated and eager to begin therapy. Pain Assessment Pain Pain Yes Pain Comments 1-4/10 with activity No pain at rest Range of Motion and Strength Hand/Finger/Thumb Range of Motion and Strength Hand/Finger/Thumb Range of Motion and L hand lacks slightly from a Strength full composite fist Hand Pinch/Housing Inspectors Strength Hand Pinch/Housing Inspectors Strength Hand Pinch/Housing Inspectors Strength Left Hand,Right Hand Left Hand Housing Inspectors Strength Position 1 in Elbow 9 Flexion (lbs) Housing Inspectors Strength Position 2 in Elbow 25 Extension (lbs) Lateral Pinch Strength (lbs) 8 Three Point Pinch (lbs) 5 Tip Pinch Strength (lbs) 5 Right Hand Housing Inspectors Strength Position 1 in Elbow 38 Flexion (lbs) Housing Inspectors Strength Position 2 in Elbow 45 Extension (lbs) Lateral Pinch Strength (lbs) 13 Three Point Pinch (lbs) 10 Tip Pinch Strength (lbs) 10 OT Objective Data Hand Hand Dominance Right Hand Function Left Hand: No erythema, induration or other cutaneous changes, 2+ radial pulse, Neurologic intact distally Digits pink, warm, brisk cap refill Tenderness: Primarily over the MCP joints but to a lesser degree over the carpus itself . Dorsal more so than volar. Additional Information Objective Additional Information IMAGIN. PA, Lateral, and Oblique views of the left hand were obtained on 03/06/2024 from [facility]. They show moderate to severe osteoarthrosis ring finger PIP joint. Also index finger DIP joint. Beyond that, no acute fractures or avulsions. No signs of AVN. OT Problems Problems Problems Decreased Strength,Decreased Range of Motion,Decreased Dexterity,Pain,Lifting, Gripping,Pinching Problems Comments While patient is R hand dominant, her L hand is having a hard time being the stabilizer (example: L hand holds the chap stick while the R hand puts the cap on). Other Problems Opening Containers,Dressing, Fasteners,Sleeping Patient Potential Good Assessment Assessment Assessment 69 year old female was seen by Ortho provider on 04/28/24 with chief complaints of left hand and right arm pain. She states she fell about 2 months ago and injured her left hand and right shoulder after a fall while hiking in [place]. Regarding the left hand, her pain is worse with gripping, squeezing, lifting a full cup of water. When she initially injured her hand the small finger was purple. Her pain is worst in the small and ring fingers. The pain has improved some, but has not resolved. Her pain is moderate, intermittent and relieves with rest. She also feels weak. Regarding the right shoulder, she jammed her shoulder as well when she fell. She has been able to continue to swim but for a shorter time. Her pain is improving with time ( injury was in Feb) with L hand activity rated at 1-4/10 and no pain at rest. Her pain is moderate, intermittent and relieves with rest. Patient is highly motivated and eager to begin therapy. Patient is an excellent candidate for therapy, she was pleasant, alert, orientated, asked great questions in session, was an active listener to information presented to her and showed signs of motivation/ willingness to follow the presented protocol in POC. PLAN: Modalities as needed to treat edema/pain/use of heat prior to manual therapy/ exercises; Manual treatment ( PRASHANTH), development of an individualized home exercise program that progresses as patient is able to take on increased challenge and pain symptoms decrease as well as patient education on biomechanics/ergonometric/ activity modifications. Occupational Therapy Treatment Plan - OP Potential Rehabilitation Potential Good Barriers Barriers to goal attainment X-rays show moderate to severe osteoarthrosis ring finger PIP joint. Also index finger DIP joint. Arthritis is a degenerative condition with no cure Set Goals Goals Set with Patient No Goals Goals 1. Patient will verbalize 3 activity modifications to decrease abusive/overloading of the muscles, joints & tendons. 2. Patient will be able to form a full composite fist with the L hand pain free. 3. After 3 treatment sessions, patient will be able to verbalize 6 adaptive strategies to protect joint integrity to have less pain with ADL/IADL & leisure activities. 4. In 8 weeks, pt will demonstrate: 1) Decreased pain to <2/10 80% of the time with sustained gripping & carrying tasks (ex: holding a coffee cup, carrying in groceries in the house, holding open a book ). 5. Patient will be fully Indep with her L hand HEP, performing program 6 days per week for a minimum of 15 minutes per day in order to gain AROM and Strength in the L hand. Target Date 12 Treatment Plan Treatment Plan Evaluation,Edema Control,Joint Mobilization,Manual Therapy, Ultrasound,Therapeutic Exercise,Therapeutic Activities,Self Care/Home Management,Education Expected Frequency 1-2x Week Expected Duration 12 Home Program Home Program Home Program Initiated Home Program Specifics *Instructed patient to do this program multiple times per day verses all in 1 setting. Access Code: [email or web address] URL: [email or web address] Date: 05/10/2024 Prepared by: Viktoriya Posadas Exercises - Wrist Tendon Gliding - 1 x daily - 7 x weekly - 3 sets - 10 reps - Wrist AAROM Flexion and Extension - 1 x daily - 7 x weekly - 3 sets - 10 reps - Putty Squeezes - 1 x daily - 7 x weekly - 3 sets - 10 reps - 2 golf balls in the palm of the L hand, move the balls in circles going clockwise than counter clock reaves Certification Certification Statement I Certify That: Therapy Services Provided, Therapy Plan Established, Therapy Plan Reviewed Certification Information Clinic ID # [id number] Initial Certification Date 05/10/24 Recertification Due Date 08/08/24 Provider Signature Required Yes Provider Signature Shows Agreement With POC & Medical Necessity Physician NPI Number Write NPI# Here Physician Comment/Change Comment or Changes Physician Signature & Date Requested Please Sign/Date Here
== END 2024-09-27 23:59 | disposition home or self-care (01) ==
PROVIDERS: PCP Physician Assistant Medical; Visit Provider Orthopaedic Surgery Sports Medicine
DX: S63.92XA Sprain of unspecified part of left wrist and hand, initial encounter (principal); S66.912A Strain of unspecified muscle, fascia and tendon at wrist and hand level, left hand, initial encounter; M19.042 Primary osteoarthritis, left hand; Z51.89 Encounter for other specified aftercare
CPT/HCPCS: 97110; 97140; 97165; X5282

== ENCOUNTER 2024-08-09 07:49 | Outpatient (CLI) | payer MEDICARE, BC, SELFPAY | END 2024-08-09 07:50 | disposition home or self-care (01) | LOC: NFLDREF 23:49 | PROVIDERS: PCP Physician Assistant Medical; Referring Provider Physician Assistant Medical; Visit Provider Physician Assistant Medical | DX: E78.5 Hyperlipidemia, unspecified (principal); F51.01 Primary insomnia; M85.80 Other specified disorders of bone density and structure, unspecified site | CPT/HCPCS: 80053; 80061; 84443 ==

== ENCOUNTER 2024-09-07 15:06 | Outpatient (CLI) | payer MEDICARE, BC, SELFPAY ==
--- NOTE | 2024-09-07 15:30 | CRLHL7_ITS ---
For Patients: As a result of the Century Cures Act, medical imaging exams and procedure reports are released immediately into your electronic medical record. You may view this report before your referring provider. If you have questions, please contact your health care provider. DXA BONE MINERAL DENSITY STUDY Current height (in): 64.0. Weight (lb): 165.0. Menopause age: 44. Ethnicity: White. 1. Have you had a previous hip or vertebral fracture? No. 2. Have you had any fractures during your adult life which did not result from significant trauma (e.g., auto accident)? No. 3. Did either of your parents have a hip fracture? No. 4. Do you smoke? No. 5. Have you ever taken Glucocorticoids? No. 6. Do you have rheumatoid arthritis? No. 7. Do you have secondary osteoporosis? No. 8. Do you drink 3 or more alcoholic drinks per day? No. 9. Are you being treated for osteoporosis? No. 10. Have you ever taken any of the following medications: Actonel, Evista, Fosamax, Miacalcin, Reclast, Boniva, Forteo, HRT (i.e. estrogen/hormone therapy), Protelos, Prolia, Vitamin D, Calcium, other ??? please specify. ANSWER: Yes, Vitamin D, Calcium. 11. Do you have any of the following medical conditions: Anorexia or bulimia, asthma or emphysema, end stage renal disease, hyperparathyroidism, any seizure disorders, cancer, inflammatory bowel diseases, hysterectomy, other ??? please specify. ANSWER: Yes, Hysterectomy. 12. What was your maximum height (inches)? 55. 13. Do you perform weight bearing exercise regularly? Yes. 14. Do you regularly consume dairy products? Yes. 15. Do you drink caffeinated beverages? Yes. If female: 16. At what age did your period start? 13. 17. Are you premenopausal? No. 18. How many full term pregnancies have you had? 2. 19. Have you ever missed your period for more than 6 months in a row (not including or menopause)? No. TECHNIQUE: Bone mineral density study was performed using the [employer]. FINDINGS: The results of the study expressed as bone mineral density (BMD) are as follows: Lumbar spine L1 to L3: BMD: 1.033 g/cm2. T-score: 0.1. Z-score: 2.2. Neck Left: BMD: 0.740 g/cm2. T-score: -1.0 . Z-score: 0.8. Right: BMD: 0.753 g/cm2. T-score: -0.9 . Z-score: 0.9. Total Left: BMD: 0.999 g/cm2. T-score: 0.5 . Z-score: 1.9. Right: BMD: 0.985 g/cm2. T-score: 0.3 . Z-score: 1.8. IMPRESSION: Normal bone density. *Comparison exams done prior to 11/2019 were performed on different unit, [facility]. COMPARISON: Compared with scan of 08/06/2022, the bone mineral density has increased by 4.6 percent at the spine and increased by 2.5 percent at the hip. Patel Murguia M.D. Diagnostic Radiologist [email or web address] [email or web address]/[email or web address] a JR/Dictated by: Nelson Newberry MD @ 09/08/2024 9:10:00 AM (Electronically Signed)
== END 2024-09-07 15:07 | disposition home or self-care (01) ==
LOC: RAD 15:07
PROVIDERS: PCP Physician Assistant Medical; Visit Provider Physician Assistant Medical
DX: M85.80 Other specified disorders of bone density and structure, unspecified site (principal); Z78.0 Asymptomatic menopausal state
CPT/HCPCS: 77080